=== PATIENT | female | born 1990 | race Caucasian/White ===

== ENCOUNTER 2020-12-21 20:37 | Emergency (ER) | payer OTHER ==
[~2020-12-21] VITALS: Ht 167.6 cm; Wt 58.1 kg
[~2020-12-21 20:37] MED LIST: GILTUSS TR TAB1 EACH PO; MONONESSA1 TAB; ZITHROMAX TRI-500 MG PO; ZYRTEC10 MG PO
[2020-12-22] MEDS ORDERED: PERCOCET 5-3251 EACH PO (00:04)
== END 2020-12-22 01:35 | disposition home or self-care (01) ==
LOC: ER 20:37
DX: S62.617A Displaced fracture of proximal phalanx of left little finger, initial encounter for closed fracture (principal); W22.8XXA Striking against or struck by other objects, initial encounter; Y93.89 Activity, other specified; Y92.832 Beach as the place of occurrence of the external cause; Y99.8 Other external cause status

== ENCOUNTER 2020-12-30 10:18 | Outpatient (CLI) | payer OTHER ==
[~2020-12-30 10:18] MED LIST changes: +PERCOCET 5-3251 EACH PO
== END 2020-12-30 10:33 | disposition home or self-care (01) ==
LOC: RAD 10:18
PROVIDERS: ATTEND Orthopaedic Surgery
DX: S62.617A Displaced fracture of proximal phalanx of left little finger, initial encounter for closed fracture (principal)

== ENCOUNTER 2021-01-22 11:05 | Outpatient (CLI) | payer OTHER | END 2021-01-22 11:15 | disposition home or self-care (01) | LOC: RAD 11:05 | PROVIDERS: ATTEND Orthopaedic Surgery | DX: S62.617A Displaced fracture of proximal phalanx of left little finger, initial encounter for closed fracture (principal) ==

== ENCOUNTER → 2021-03-25 | Outpatient (CLI) | payer OTHER | END | disposition home or self-care (01) | LOC: RAD 10:38 | PROVIDERS: ATTEND Orthopaedic Surgery | DX: S62.617A Displaced fracture of proximal phalanx of left little finger, initial encounter for closed fracture (principal) ==

== ENCOUNTER 2021-04-14 09:30 | Outpatient (CLI) | payer OTHER | END 2021-04-14 09:45 | disposition home or self-care (01) | LOC: SONOGRAMA 09:30 → MAMO-SONO 10:00 | PROVIDERS: ATTEND Obstetrics & Gynecology | DX: R10.2 Pelvic and perineal pain (principal); N92.1 Excessive and frequent menstruation with irregular cycle; Z30.431 Encounter for routine checking of intrauterine contraceptive device ==

== ENCOUNTER → 2022-07-16 | Outpatient (CLI) | payer OTHER | END | disposition home or self-care (01) | LOC: RAD 12:52 | DX: M46.1 Sacroiliitis, not elsewhere classified (principal) ==

== ENCOUNTER 2023-02-08 10:17 | Outpatient (CLI) | payer OTHER | END 2023-02-08 10:29 | disposition home or self-care (01) | LOC: RAD 10:17 | DX: M79.671 Pain in right foot (principal) ==

== ENCOUNTER 2025-01-18 08:51 | Outpatient (CLI) | payer OTHER | END 2025-01-18 08:52 | disposition home or self-care (01) | LOC: SONOGRAMA 08:51 | PROVIDERS: ATTEND Obstetrics & Gynecology Gynecology | DX: N63 Unspecified lump in breast (principal); N64.4 Mastodynia; N60.11 Diffuse cystic mastopathy of right breast ==